=== PATIENT | male | born 1990 | race Caucasian/White ===

== ENCOUNTER 2017-01-28 01:37 | Emergency (ER) | payer OTHER ==
[2017-01-28 01:42] VITALS: RESP 18; O2SAT 96
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
[2017-01-28] MEDS ORDERED: SKIN ADHESIVE (DERMABOND) 1 EACH TP ONE (02:39)
[2017-01-28] MEDS ORDERED: AMOXICILLIN/CLAVULANATE POT 875/125 MG TAB PO ONE (03:10)
[2017-01-28 03:27] VITALS: BP 103/63; PULSE 55; TEMP 97.9
== END 2017-01-28 03:26 | disposition home or self-care (01) ==
PROC: 0HQ1XZZ Repair Face Skin, External Approach (ICD-10-PCS; principal; 2017-01-28)
DX: S02.81XA Fracture of other specified skull and facial bones, right side, initial encounter for closed fracture (principal); S01.111A Laceration without foreign body of right eyelid and periocular area, initial encounter; Z91.010 Allergy to peanuts; Y04.0XXA Assault by unarmed brawl or fight, initial encounter